=== PATIENT | male | born 1945 | race Caucasian/White ===

== ENCOUNTER → 2017-01-11 | Outpatient (CLI) | payer OTHER ==
--- NOTE | 2017-01-11 14:55 | RAD ---
MRI right knee without contrast dated 01/11/2017 1:50 PM Indication: Chronic bilateral knee pain and weakness . Pain. Comparison: No comparison is available. Technique: Routine multiplanar multisequence imaging performed. . Findings: Moderate tricompartmental hypertrophic change with small marginal osteophytes. Thinning and surface irregularity of the articular cartilage throughout. Full-thickness cartilage loss at the weightbearing surface of the medial tibial plateau with near full-thickness cartilage loss at the medial femoral condyle. Full-thickness cartilage loss at the lateral patellar facet and lateral femoral trochlea and trochlear groove. Small joint effusion. Small popliteal cyst. There are 2 small loose bodies at the anterior joint space that measure 3 to 4 mm in size. Patchy edema throughout the subcutaneous tissues, nonspecific. Anterior cruciate and posterior cruciate ligaments are intact. Medial and lateral collateral complexes are intact. Iliotibial band, popliteus tendon and pes anserine complex within normal limits. Quadriceps and patellar tendon are intact. No abnormality of the medial or lateral retinaculum. Posterior horn and body of medial meniscus are blunted in morphology and deficiency in size with complex internal signal. Small perimeniscal cyst near the posterior horn/body junction. The anterior horn is intact. Lateral meniscus is normal in morphology and signal.. IMPRESSION: 1. Moderate tricompartmental degenerative arthrosis and chondromalacia. There is full-thickness cartilage loss of the medial and anterior compartments. 2. Complex tear posterior horn/body of medial meniscus. 3. Small joint effusion and tiny popliteal cyst. There are small loose bodies at the anterior joint space. Electronically signed by: Francis Fowler MD (01/11/2017 2:52 PM) [facility]
--- NOTE | 2017-01-11 15:42 | RAD ---
MRI left knee without contrast dated 01/11/2017 2:19 PM Indication: Chronic bilateral knee pain , weakness . Pain Comparison: Right knee exam performed same day. Technique: Routine multiplanar multisequence imaging performed. . Findings: Moderate tricompartmental hypertrophic change with small marginal osteophytes. Thinning and surface irregularity of the articular cartilage throughout. Full-thickness cartilage loss over the weightbearing surfaces of medial femoral condyle and medial tibial plateau. There is also full-thickness cartilage loss and subchondral edema of the lateral patellar facet and lateral femoral trochlea. Full-thickness cartilage loss is also noted at the medial patellar facet and patellar apex. Small joint effusion. Small popliteal cyst. Small loose body within the popliteal cyst. Patchy edema throughout the subcutaneous tissues of the knee. Anterior cruciate ligament is poorly visualized. There may be a few residual intact fibers. The PCL is intact. Medial and lateral collateral complexes are intact. Iliotibial band, popliteus tendon and pes anserine complex within normal limits. Quadriceps and patellar tendon are intact. No abnormality of the medial or lateral retinaculum. There is mild edema within the prepatellar and superficial infrapatellar soft tissues, nonspecific. Mild lateral patellar subluxation with tibial tubercle to trochlear groove distance estimated at about 8 mm. The entire medial meniscus is deficient in size and blunted morphology. Lateral meniscus is normal in morphology and signal. IMPRESSION: 1. Moderate tricompartmental degenerative arthrosis and chondromalacia. There is full-thickness cartilage loss at the medial and anterior compartments. 2. Deficiency in size and blunted morphology of the medial meniscus. This could be related to chronic severe degenerative tearing and/or prior partial meniscectomy. Recommend clinical correlation 3. Poor visualization of the anterior cruciate ligament, severe mucoid degeneration versus chronic tear. Recommend physical exam correlation. 4. Small joint effusion with nonspecific patchy edema throughout the subcutaneous tissues of the knee. Electronically signed by: Francis Fowler MD (01/11/2017 3:39 PM) [facility]
== END | disposition home or self-care (01) ==
LOC: MRI 10:37
PROVIDERS: ATTEND Physical Medicine & Rehabilitation
DX: S83.242A Other tear of medial meniscus, current injury, left knee, initial encounter (principal); X58.XXXA Exposure to other specified factors, initial encounter; M94.262 Chondromalacia, left knee; M71.22 Synovial cyst of popliteal space [Baker], left knee; M94.261 Chondromalacia, right knee; M25.462 Effusion, left knee; M25.461 Effusion, right knee; Y93.89 Activity, other specified; Y92.89 Other specified places as the place of occurrence of the external cause; Y99.8 Other external cause status
CPT/HCPCS: 73721

== ENCOUNTER 2019-02-06 10:12 | Day surgery (SDC) | payer MEDICARE, OTHER ==
[~2019-02-06] VITALS: Ht 177.8 cm; Wt 113.4 kg
[~2019-02-06 10:12] MED LIST: ABAT125S SQ; ACET-704 PO; ALBU2.5V8 INH; ALEN70TA6 PO; ALLO100T PO; ASPI81TA50 PO; ATOR20TA58 PO; BACITRACIN 50,000 UNIT in IV NORMAL SALINE 500ML BAG 500 ML IRR ONE; BUPIVACAINE-EPI 0.5%-1:200000 MPF 30 ML VIAL. INJ ONE; CALC0.25 PO; CARV6.25 PO; CEPH500C PO; CHOL10003 PO; CYAN100T2 PO; DEXAMETHASONE SOD PHOS 4 MG/ML VIAL ONE; DIVA-53 PO; DOXY100T PO; FERR240T2 PO; FOLI0.8T30 PO; FOLI1TAB16 PO; FURO40TA4 PO; GLIM2TAB3 PO; HYDROmorphone 2 MG/ML VIAL IV PRN; IV RINGERS,LACTATED 1000ML 1,000 ML IV SCH; LIDOCAINE 1% PF 2 ML VIAL. ID PRN; LIDOCAINE 2% PF 5 ML VIAL. ONE; METH2.5T PO; MORPHINE SULFATE 2 MG/ML VIAL. IV PRN; NIFE60TA14 PO; ONDANSETRON PF 4 MG/2 ML VIAL. IV PRN; ONDANSETRON PF 4 MG/2 ML VIAL. ONE; POTA10TA12 PO; PROCHLORPERAZINE 10 MG/2 ML VIAL. IV PRN; PROPOFOL 20 ML IV ONE; SERT50TA PO; SODI650T PO; TRAM50TA PO; TRAZ150T49 PO; ceFAZolin 2GM PREMIX 2 GM/50 ML BAG IV ONE; fentaNYL PF VIAL 100 MCG/2 ML VIAL IV PRN
[2019-02-06] MEDS ORDERED: GELATIN SPONGE SIZE 100. ONE (10:48)
[2019-02-06] MEDS ORDERED: CHLORHEXIDINE 0.12% 15 ML MOUTHWASH. ONE (10:48)
[2019-02-06] MEDS ORDERED: fentaNYL PF VIAL 100 MCG/2 ML VIAL ONE (11:12)
[2019-02-06] MEDS ORDERED: GELATIN SPONGE SIZE 12-7MM SPONGE. ONE (12:51)
[2019-02-06] MEDS ORDERED: ROCURONIUM 50 MG/5 ML VIAL. ONE (12:58)
[2019-02-06] MEDS ORDERED: GLYCOPYRROLATE 1 MG/5 ML VIAL. ONE (13:00)
[2019-02-06] MEDS ORDERED: NEOSTIGMINE METHYLSULFATE 5 MG/5 ML SYRINGE. ONE (13:00)
[2019-02-06] MEDS ORDERED: SEVOFLURANE 61 TO 120 MINUTES. IH ONE (13:19)
[2019-02-06] MEDS ORDERED: PROPOFOL 20 ML IV ONE (13:28)
--- NOTE | 2019-02-06 14:01 | PDOC4 ---
OPERATIVE NOTE Date: Date: Feb 06, 2019 Pre-Op Diagnosis: COPD Caries 2, 4, 8, 18 MRONJ lower left mandible Post-Op Diagnosis: COPD Caries 2, 4, 8, 18 MRONJ lower left mandible Procedure Performed: sx extraction of Caries 2, 4, 8, 18 And biopsy of MRONJ lower left mandible Surgeon: daiana Anesthesia Type: ANS Blood Loss: 20 Specimans Obtained: bone for permanent MRONJ lower left mandible Findings: see dictation Complications: none Operative Note: see dictation DAIANA,LALI Mcclain DMD Feb 06, 2019 14:01
[2019-02-06 15:12] VITALS: BP 162/78
[2019-02-06] MEDS ORDERED: traMADol 50 MG TABLET PO ONE (15:30)
--- NOTE | 2019-02-06 15:40 | OP ---
DATE OF SURGERY: 02/06/2019 OPERATING SERVICE: Oral Maxillofacial Surgery. 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 PROCEDURES PERFORMED: Surgical removal of teeth 2. 4, 8 and 18 and debridement back to bleeding bone in the lower left mandible with specimens sent for permanent analysis. BRIEF HISTORY: The patient was [facility] our [facility]. Considering his severe COPD and other medical comorbidities, we elected to escalate the setting of care to the OR for management. Permit was obtained and surgery was scheduled. DRAINS PLACED: None. SPECIMEN SENT: Non-vital bone from the lower left mandible. COMPLICATIONS: None noted at the time of surgery. ESTIMATED BLOOD LOSS: Approximately 20 mL. OPERATIVE DESCRIPTION: The patient was transported to preoperative holding. History and physical was updated, the patient was marked and the patient was taken to the operating suite by the Anesthesia Service and placed in the supine position. General anesthesia was induced. The patient was intubated without complication. Tube was secured to the lower right face. A timeout was initiated by surgical staff, all perioperative staff in agreeance. Surgery began with placement of a moistened throat pack in the oropharynx, local anesthesia in the form of 0.5% Marcaine, 1:200,000 epinephrine was administered approximately 22 mL and an additional 6 mL were administered at the culmination of the procedure. Local anesthetic was 0.5% Marcaine, 1:200,000 epinephrine. Surgery began with a 15 blade in the upper right quadrant to elevate a full thickness mucoperiosteal flap at areas 2, 4, and 8. Rongeurs, elevators and forceps were utilized to surgically remove teeth numbers 2, 4 and 8. The sites were curetted, lavaged with copious normal sterile saline and suctioned. Gelfoam was placed in these sites. Periapical tissue was removed prior to the Gelfoam. The sites were then oversewn with 3-0 chromic gut in a [id number]-ga-uvpod fashion. Areas were lavaged and suctioned. The bite block was placed on the lower right side and the lower left was addressed. A mid crestal flap was created with a full thickness. Mucoperiosteal flap was then elevated buccally with a distal hockey stick. Tooth was grossly carious to the bone Rotary instrumentation with copious normal sterile saline irrigation was utilized to section the tooth, debride the area, remove the tooth and debride the area back to bleeding bone. Specimens of bone were sent as lower left mandible for permanent pathological analysis. The area was lavaged and curetted with copious normal sterile saline and the area was found to be hemostatic. Gelfoam was placed and the site was oversewn with a running locked 3-0 chromic gut suture. The area was then lavaged and suctioned, moistened throat pack was removed, and an OG was passed. The stomach was decompressed. The patient was then returned to the care of Anesthesia, where he was awakened and extubated without complication and transported to the PACU in stable condition. OCTAVIO AHMADI DMD DR: Shonda JOB#: [id number] / [id number] GRAHAM
--- NOTE | 2019-02-09 23:06 | PATHOLOGY ---
[facility] Accession Number: [id number] . 01 Material submitted: . mandible - LEFT LOWER MANDIBLE BONE - PERMANENT. Modifiers: left, lower . 01 Clinical history: . Dental carries . 02 Diagnosis: "Left lower mandible bone - permanent", biopsy: - Decalcified bone with mild reactive and degenerative changes. (CLW:pit; 02/08/2019) QTP 02/08/2019 1226 Local . 02 Electronically signed: . Portia Goodwin MD, Pathologist NPI- [id number] . 01 Gross description: . Received in an unidentified clear fluid labeled "Luanita, Clifford, left lower mandible bone-permanent," is a 0.9 x 0.5 x 0.2 cm aggregate of granular, yellow-modi bone/cartilage fragments. The specimen is submitted entirely in cassette A1, following decalcification. ([facility]; 02/07/2019) XDC/XDC 02/07/2019 0723 Local . 02 Pathologist provided ICD-10: M89.8X8 . 02 CPT . 707730, [id number] Specimen Comment: A courtesy copy of this report has been sent to [phone], [phone] Specimen Comment: [id number] Specimen Comment: Report sent to / DR ADKINS Performed at: 01 [facility] [address], [place] [id number] MD Germán Hatch MD Phone: [phone] Performed at: 02 [facility] [address], [place] [id number] MD Spencer Lui MD Phone: [phone]
== END 2019-02-06 15:30 | disposition home or self-care (01) ==
LOC: SURG 10:12
PROVIDERS: ATTEND Dentist Oral and Maxillofacial Surgery
DX: K02.9 Dental caries, unspecified (principal); J44.9 Chronic obstructive pulmonary disease, unspecified; I48.91 Unspecified atrial fibrillation; M87.88 Other osteonecrosis, other site; G47.33 Obstructive sleep apnea (adult) (pediatric); G43.909 Migraine, unspecified, not intractable, without status migrainosus; I13.0 Hypertensive heart and chronic kidney disease with heart failure and stage 1 through stage 4 chronic kidney disease, or unspecified chronic kidney disease; E11.22 Type 2 diabetes mellitus with diabetic chronic kidney disease; N18.9 Chronic kidney disease, unspecified; I50.9 Heart failure, unspecified; F41.9 Anxiety disorder, unspecified; F32.9 Major depressive disorder, single episode, unspecified; E66.9 Obesity, unspecified; Z68.35 Body mass index [BMI] 35.0-35.9, adult; Z95.0 Presence of cardiac pacemaker; Z88.8 Allergy status to other drugs, medicaments and biological substances; Z79.82 Long term (current) use of aspirin; Z87.891 Personal history of nicotine dependence; Z86.718 Personal history of other venous thrombosis and embolism; Z90.49 Acquired absence of other specified parts of digestive tract; Z87.39 Personal history of other diseases of the musculoskeletal system and connective tissue; Z79.84 Long term (current) use of oral hypoglycemic drugs
CPT/HCPCS: 41899; 82962; A7015; J0696; J1100; J2001; J2405; J2704; J2710; J3010; J3490; J7040

== ENCOUNTER 2019-09-12 18:22 | Emergency (ER) | payer MEDICARE, OTHER ==
[~2019-09-12] VITALS: Ht 172.7 cm; Wt 118.0 kg
[~2019-09-12 18:22] MED LIST changes: -BACITRACIN 50,000 UNIT in IV NORMAL SALINE 500ML BAG 500 ML IRR ONE; -BUPIVACAINE-EPI 0.5%-1:200000 MPF 30 ML VIAL. INJ ONE; -DEXAMETHASONE SOD PHOS 4 MG/ML VIAL ONE; -GLIM2TAB3 PO; +GLIM2TAB7 PO; -HYDROmorphone 2 MG/ML VIAL IV PRN; -IV RINGERS,LACTATED 1000ML 1,000 ML IV SCH; -LIDOCAINE 1% PF 2 ML VIAL. ID PRN; -LIDOCAINE 2% PF 5 ML VIAL. ONE; -MORPHINE SULFATE 2 MG/ML VIAL. IV PRN; -ONDANSETRON PF 4 MG/2 ML VIAL. IV PRN; -ONDANSETRON PF 4 MG/2 ML VIAL. ONE; -POTA10TA12 PO; +POTASSIUM CHLO10 ME1 PO; -PROCHLORPERAZINE 10 MG/2 ML VIAL. IV PRN; -PROPOFOL 20 ML IV ONE; -ceFAZolin 2GM PREMIX 2 GM/50 ML BAG IV ONE; -fentaNYL PF VIAL 100 MCG/2 ML VIAL IV PRN
[2019-09-12 18:53] LABS: BILIRUBIN,URINE NEGATIVE (NEG); CLARITY,URINE CLEAR; COLOR,URINE YELLOW; NITRITE,URINE NEGATIVE (NEG); PROTEIN,URINE NEGATIVE (NEG-TRACE); UROBILINOGEN,URINE 0.2 mg/dL (0.2 mg/dL)
[2019-09-12 19:01] LABS: BASO # 0.1 x10^3/uL (0.0-0.2); BASO % 1 % (0-3); EOS # 0.5 x10^3/uL (0.0-0.7); EOS % 5 % (0-3); HEMATOCRIT 36.3 % (39.0-53.0); HEMOGLOBIN 11.9 g/dL (13.0-17.5); LYMPH # 3.1 x10^3/uL (1.0-4.8); LYMPH % 26 % (24-48); MEAN CORPUSCULAR HEMOGLOBIN 29 pg (25-35); MEAN CORPUSCULAR HGB CONC 33 g/dL (31-37); MEAN CORPUSCULAR VOLUME 89 fL (79-100); MONO # 0.6 x10^3/uL (0.0-1.1); MONO % 5 % (0-9); NEUT # 7.6 x10^3/uL (1.8-7.7); NEUT % 64 % (31-73); PLATELET COUNT 176 x10^3/uL (140-400); RED CELL DISTRIBUTION WIDTH 17.6 % (11.5-14.5); WHITE BLOOD COUNT 11.9 x10^3/uL (4.0-11.0)
[2019-09-12 19:02] LABS: RBC,URINE RARE /HPF (0-2)
[2019-09-12 19:03] LABS: BACTERIA,URINE 0 /HPF (0-FEW); HYALINE CASTS, URINE OCCASIONAL /HPF; SQUAMOUS EPITHELIAL CELL,UR OCC /LPF; WBC,URINE 0 /HPF (0-4)
--- NOTE | 2019-09-12 19:06 | PHYS DOC ---
Past Medical History Past Medical History: A-Fib Additional Past Medical Histor: BLOOD CLOT LLE Past Surgical History: Pacemaker Smoking Status: Former Smoker Alcohol Use: Occasionally Drug Use: None General Adult EDM: Chief Complaint: NEURO SYMPTOMS/DEFICITS HPI: HPI: Patient is a 74 year old male who presents with acute onset of right sided numbness to the arm and face that started approximately 45 minutes prior to arrival. Patient has also had shortness of breath since yesterday and indicates that was stating that he thought he had pneumonia. Patient is also had approximately 10 pound weight gain over the last month but has not changed his diet at all. They think that he is retaining fluids despite taking Lasix on a daily basis. Patient denies any chest pain. He states the shortness of breath is worsened with exertion. He denies any specific lateralizing weakness. [] Review of Systems: Review of Systems: Constitutional: Denies fever or chills. [] Respiratory: Complains of cough and shortness of breath. [] Cardiovascular: Denies chest pain. Complains of edema. [] GI: Denies abdominal pain, nausea, vomiting or diarrhea. [] Integument: Denies rash. [] Neurologic: Denies headache.patient complains of right-sided numbness. [] A full 10 point review of systems has been reviewed and is otherwise negative. Heart Score: Risk Factors: Risk Factors: DM, Current or recent (<one month) smoker, HTN, HLP, family history of CAD, obesity. Risk Scores: Score 0 - 3: 2.5% MACE over next 6 weeks - Discharge Home Score 4 - 6: 20.3% MACE over next 6 weeks - Admit for Clinical Observation Score 7 - 10: 72.7% MACE over next 6 weeks - Early Invasive Strategies Allergies: Allergies: Allergies Coded Allergies Type Severity Reaction Last Updated Verified I S O L A T I O N *CONTACT* Allergy Unknown 02/06/19 Yes No Known Medication Allergies Allergy Unknown 02/06/19 Yes propranolol Adverse Reaction Intermediate bronchospasm 02/06/19 Yes Physical Exam: PE: Constitutional: Well developed, well nourished, no acute distress, non-toxic appearance. [] HENT: Normocephalic, atraumatic, bilateral external ears normal, oropharynx moist, no oral exudates, nose normal. [] Eyes: PERRLA, EOMI, conjunctiva normal, no discharge. [] Neck: Normal range of motion, no tenderness, supple, no stridor. [] Cardiovascular: Regular rate and rhythm [] Lungs & Thorax: Fine rales are noted bilaterally to auscultation [] Abdomen: Bowel sounds normal, soft, no tenderness. [] Skin: Warm, dry, no erythema, no rash. [] Extremities: No tenderness, no cyanosis, no clubbing, ROM intact, with 2-3+ lower extremity pitting edema. [] Neurologic: Alert and oriented X 3n, no focal deficits noted. [] EKG: EKG: [] Radiology/Procedures: Radiology/Procedures: [] Impression: PROCEDURE: CT HEAD WO CONTRAST Exam: CT head INDICATION: Right sided numbness TECHNIQUE: Sequential axial images through the head were obtained without the administration of IV contrast. Comparisons: None FINDINGS: No focal parenchymal lesion or hemorrhage is identified. There is no midline shift or sulcal effacement. No acute vascular territory infarction is identified. [place]-white distinction is preserved. The ventricular system is within normal limits without compression hydrocephalus. The basal cisterns are well maintained. The visualized portions of the paranasal sinuses and mastoid air cells are well-pneumatized. No acute fractures. IMPRESSION: No acute intracranial abnormality. Exposure: One or more of the following in the visualized dose reduction techniques were utilized for this examination: 1. Automated exposure control 2. Adjustment of the MA and/or KV according to patient size Use of iterative of reconstructive technique Electronically signed by: Oli Robin MD (09/12/2019 8:07 PM) [id number] Course & Med Decision Making: Course & Med Decision Making Pertinent Labs and Imaging studies reviewed. (See chart for details) [] Dragon Disclaimer: Dragon Disclaimer: This electronic medical record was generated, in whole or in part, using a voice recognition dictation system. Departure Departure Impression: Primary Impression: Right sided numbness Additional Impressions: CHF (congestive heart failure) Qualified Codes: I50.9 - Heart failure, unspecified Ayccv-tl-fpaiqed kidney injury Qualified Codes: N17.9 - Acute kidney failure, unspecified; N18.9 - Chronic kidney disease, unspecified Elevated troponin Disposition: ADMITTED INPATIENT Admitting Physician: [facility] Condition: IMPROVED Referrals: XAVI ADKINS MD (PCP) Justicifation of Admission Dx: Justifications for Admission: Justification of Admission Dx: Comment: (CHF with hypoxemia) ML KIM Jr. DO Sep 12, 2019 19:06
[2019-09-12 19:15] LABS: GFR 32.9; POTASSIUM 4.7 mmol/L (3.5-5.1)
--- NOTE | 2019-09-12 19:19 | RAD ---
Exam: Chest one view INDICATION: Dyspnea TECHNIQUE: Frontal view of the chest Comparisons: 05/24/2018 FINDINGS: Pacer with leads terminating the right atrium and ventricle. The cardiomediastinal silhouette and pulmonary vessels are within normal limits. The lung and pleural spaces are clear. IMPRESSION: No acute pulmonary process. Electronically signed by: Oli Robin MD (09/12/2019 7:16 PM) [id number]
[2019-09-12 19:21] LABS: ALBUMIN 3.2 g/dL (3.4-5.0); ALBUMIN/GLOBULIN RATIO 0.8 (1.0-1.7); TOTAL BILIRUBIN 0.3 mg/dL (0.2-1.0); TOTAL PROTEIN 7.2 g/dL (6.4-8.2)
--- NOTE | 2019-09-12 20:10 | RAD ---
Exam: CT head INDICATION: Right sided numbness TECHNIQUE: Sequential axial images through the head were obtained without the administration of IV contrast. Comparisons: None FINDINGS: No focal parenchymal lesion or hemorrhage is identified. There is no midline shift or sulcal effacement. No acute vascular territory infarction is identified. [place]-white distinction is preserved. The ventricular system is within normal limits without compression hydrocephalus. The basal cisterns are well maintained. The visualized portions of the paranasal sinuses and mastoid air cells are well-pneumatized. No acute fractures. IMPRESSION: No acute intracranial abnormality. Exposure: One or more of the following in the visualized dose reduction techniques were utilized for this examination: 1. Automated exposure control 2. Adjustment of the MA and/or KV according to patient size Use of iterative of reconstructive technique Electronically signed by: Oli Robin MD (09/12/2019 8:07 PM) [id number]
[2019-09-12] MEDS ORDERED: traMADol 50 MG TABLET PO PRN (21:45)
[2019-09-12] MEDS ORDERED: DOCUSATE SODIUM 100 MG CAPSULE. PO PRN (21:45)
[2019-09-12] MEDS ORDERED: ALBUTEROL SULFATE 2.5 MG/3 ML NEBU. INH PRN (21:45)
[2019-09-12] MEDS ORDERED: ZOLPIDEM 5 MG TABLET. PO PRN (21:45)
[2019-09-12] MEDS ORDERED: ACETAMINOPHEN 325 MG TABLET. PO PRN (21:45)
[2019-09-12] MEDS ORDERED: LORazepam 0.5 MG TABLET PO PRN (21:45)
[2019-09-12] MEDS ORDERED: ALBUTEROL SULFATE 2.5 MG/3 ML NEBU. NEB PRN (21:45)
[2019-09-12] MEDS ORDERED: diphenhydrAMINE 50 MG/ML VIAL IVP PRN (21:45)
[2019-09-12] MEDS ORDERED: guaiFENesin ORAL 200 MG/10 ML LIQUID. PO PRN (21:45)
[2019-09-12] MEDS ORDERED: ONDANSETRON PF 4 MG/2 ML VIAL. IV PRN (21:45)
[2019-09-12 22:00] VITALS: BP 137/73
[2019-09-12] MEDS ORDERED: DIVALPROEX DELAYED RELEASE 500 MG TABLET.DR. PO SCH (22:30)
[2019-09-12] MEDS ORDERED: traZODone 50 MG TABLET. PO SCH (22:30)
--- NOTE | 2019-09-13 06:26 | EKG ---
[facility] [address] [place] [address] Test Date: 2019-09-12 Test Time: 19:41:04 Pat Name: BRAD PEREZ Department: Room: Gender: M Employee Benefits Director: : 1945 Requested By: ML KIM Order Number: [id number] Reading MD: James Pruitt Measurements Intervals [place] Rate: 91 P: MA: QRS: -36 QRSD: 108 T: 125 QT: 352 QTc: 435 Interpretive Statements ATRIAL FIBRILLATION. 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
[2019-09-13] MEDS ORDERED: FERROUS SULFATE 325 MG TABLET. PO SCH (08:00)
[2019-09-13] MEDS ORDERED: CARVEDILOL 6.25 MG TABLET. PO SCH (08:00)
[2019-09-13] MEDS ORDERED: POTASSIUM CHLORIDE 10 MEQ TABLET.ER. PO SCH (08:00)
[2019-09-13] MEDS ORDERED: FOLIC ACID 1 MG TABLET. PO SCH (09:00)
[2019-09-13] MEDS ORDERED: SODIUM BICARBONATE 650 MG TABLET. PO SCH (09:00)
[2019-09-13] MEDS ORDERED: ALLOPURINOL 100 MG TABLET. PO SCH (09:00)
[2019-09-13] MEDS ORDERED: ASPIRIN ENTERIC COATED 81 MG TABLET.DR. PO SCH (09:00)
[2019-09-13] MEDS ORDERED: SERTRALINE 50 MG TABLET. PO SCH (09:00)
[2019-09-13] MEDS ORDERED: ATORVASTATIN CALCIUM 20 MG TABLET PO SCH (21:00)
[2019-09-15] MEDS ORDERED: CALCITRIOL 0.25 MCG CAPSULE. PO SCH (09:00)
[2019-09-17] MEDS ORDERED: ABATACEPT 125 MG SQ SCH (16:00)
[2019-09-19] MEDS ORDERED: NON FORMULARY ITEM (Alendronate Sodium 1 TAB) PO SCH (09:00)
== END 2019-09-12 22:28 | disposition other institution (70) ==
LOC: ER 18:22 → UNDOADMIN 21:28 → 6 SOUTH 21:28
DX: I50.9 Heart failure, unspecified (principal); N18.9 Chronic kidney disease, unspecified; N17.9 Acute kidney failure, unspecified; R20.0 Anesthesia of skin; R79.89 Other specified abnormal findings of blood chemistry; I48.91 Unspecified atrial fibrillation; Z87.891 Personal history of nicotine dependence; Z95.0 Presence of cardiac pacemaker; Z91.041 Radiographic dye allergy status; Z88.8 Allergy status to other drugs, medicaments and biological substances
CPT/HCPCS: 36415; 70450; 71045; 80053; 81001; 83605; 83880; 84484; 85025; 87040; 87086; 87205; 93005; 99285-25